=== PATIENT | male | born 1950 | race African-American/Black ===

== ENCOUNTER 2017-05-07 09:24 | Inpatient (IN) | payer MEDICARE, MEDICAID ==
[~2017-05-07] VITALS: Ht 175.3 cm; Wt 100.2 kg
[2017-05-07] MEDS ORDERED: SODIUM CHLORIDE 0.9% 1,000 ML IV ONE (10:00)
[2017-05-07 11:30] LABS: CLARITY URINE CLEAR (CLEAR); COLOR URINE YELLOW (YELLOW); KETONES URINE NEGATIVE (NEGATIVE); LEUKOCYTE ESTERASE URINE NEGATIVE (NEGATIVE); NITRITE URINE NEGATIVE (NEGATIVE); OCCULT BLOOD URINE TRACE (NEGATIVE); PH URINE 5.5 (4.5-8.0); PROTEIN URINE 2+ (NEGATIVE); SPECIFIC GRAVITY URINE 1.016 (1.005-1.030); UROBILINOGEN URINE 0.2 E.U./dL (0.2-1.0)
[2017-05-07 11:49] LABS: CHLORIDE 108 mEq/L (98-107); ETHANOL BLOOD < 10 mg/dL
[2017-05-07 11:58] LABS: CARBAMAZEPINE < 0.5 ug/mL (4-12); PHENOBARBITAL < 2.1 ug/mL (15.0-40.0)
[2017-05-07 12:01] LABS: *AMPHETAMINES SCREEN URINE NEGATIVE (NEGATIVE); *BARBITURATES SCREEN URINE NEGATIVE (NEGATIVE); *BENZODIAZEPINES SCREEN URINE NEGATIVE (NEGATIVE); *COCAINE SCREEN URINE NEGATIVE (NEGATIVE); CANNABINOID URINE SCREEN NEGATIVE (NEGATIVE); METHADONE URINE SCREEN NEGATIVE (NEGATIVE); OPIATES URINE SCREEN PRESUMTIVE POSITIVE (NEGATIVE); PHENCYCLIDINE URINE SCREEN NEGATIVE (NEGATIVE)
[2017-05-07] MEDS ORDERED: VALPROIC ACID 250MG CAPSULE PO ONE (12:30)
[2017-05-07] MEDS ORDERED: CLONIDINE 0.1MG TABLET PO ONE (13:30)
[2017-05-07 13:50] LABS: BASOPHILS % 0.9 % (0.0-2.0); EOSINOPHILS % 0.3 % (0.0-5.0); HEMOGLOBIN. 9.9 g/dL (14.0-18.0); LYMPHOCYTES % 11.5 % (20.0-50.0); MEAN CORPUSCULAR HEMOGLOBIN 28.9 pg (28.0-32.0); MEAN CORPUSCULAR VOLUME 87.4 fL (80.0-94.0); MONOCYTES % 6.1 % (2.0-8.0); NEUTROPHILS % 81.2 % (40.0-76.0); RED BLOOD CELL COUNT 3.43 mill/uL (4.7-6.1); RED CELL DISTRIBUTION WIDTH 15.7 % (11.6-14.6)
[2017-05-07] MEDS ORDERED: DOCUSATE SODIUM 100MG CAPSULE PO PRN (17:30)
[2017-05-07] MEDS ORDERED: IPRATROPIUM/ALBUTEROL 0.5-3(2.5)MG/3ML NEB INH PRN (17:30)
[2017-05-07] MEDS ORDERED: KETOROLAC 15MG/ML VIAL IV PRN (17:30)
[2017-05-07] MEDS ORDERED: GUAIFENESIN 200MG/10ML SUGAR FREE UDC PO PRN (17:30)
[2017-05-07] MEDS ORDERED: ZOLPIDEM TARTRATE 5MG TABLET PO PRN (17:30)
[2017-05-07] MEDS ORDERED: CLONIDINE 0.1MG TABLET PO PRN (17:30)
[2017-05-07] MEDS ORDERED: DIPHENHYDRAMINE 50MG/ML VIAL IV PRN (17:30)
[2017-05-07] MEDS ORDERED: MAGNESIUM/ALUMINUM HYDROXIDE/SIMETHICONE 30ML UDC PO PRN (17:30)
[2017-05-07] MEDS ORDERED: ONDANSETRON HCL 4MG/2ML VIAL IV PRN (17:30)
[2017-05-07] MEDS ORDERED: NITROGLYCERIN 0.4MG TABLET SL SL PRN (17:30)
[2017-05-07] MEDS ORDERED: LORAZEPAM 2MG/ML CPJ IV PRN (17:30)
[2017-05-07] MEDS ORDERED: NA PHOS,M-B/NA PHOS,DI-BA ENEMA 118ML PR PRN (17:30)
[2017-05-07] MEDS ORDERED: FAMOTIDINE 20MG/2ML VIAL IV SCH (21:00)
[2017-05-07 21:03] LABS: TOTAL IRON BINDING CAPACITY 169 ug/dL (250-450)
[2017-05-07 21:23] LABS: FOLIC ACID (FOLATE) SERUM 9.8 ng/mL (>5.38)
[2017-05-07 22:25] VITALS: BP 156/80
[2017-05-07] MEDS: LEVETIRACETAM 500MG TABLET PO SCH (23:27)
[2017-05-07] MEDS: VALPROIC ACID 250MG CAPSULE PO SCH (23:27)
[2017-05-08] VITALS: BP 146/76
[2017-05-08 04:00] VITALS: BP 147/79
[2017-05-08] MEDS: VALPROIC ACID 250MG CAPSULE PO SCH ×2 (07:04→14:38)
[2017-05-08 08:00] VITALS: BP 145/72
[2017-05-08] MEDS: LEVETIRACETAM 500MG TABLET PO SCH (08:32)
[2017-05-08] MEDS ORDERED: FAMOTIDINE 20MG/2ML VIAL IV SCH (09:00)
[2017-05-08] MEDS ORDERED: ENOXAPARIN 40MG/0.4ML SYR SUBCUT SCH (09:00)
[2017-05-08] MEDS ORDERED: AMLODIPINE 10MG TABLET PO SCH (09:00)
[2017-05-08 12:30] VITALS: BP 142/62
[2017-05-08 12:38] VITALS: BP 142/62
== END 2017-05-08 16:00 | disposition home or self-care (01) | DRG 871 ==
LOC: ER 09:37 → EDBD 13:01 → 8WST 13:01 → ENRESERV 21:17
PROVIDERS: ADMIT Internal Medicine; ATTEND Internal Medicine
DX: A41.9 Sepsis, unspecified organism (principal); G93.40 Encephalopathy, unspecified; N17.0 Acute kidney failure with tubular necrosis; G40.89 Other seizures; D63.8 Anemia in other chronic diseases classified elsewhere; I10 Essential (primary) hypertension
CPT/HCPCS: 36415; 70450; 80053; 80061; 80156; 80165; 80184; 80185; 80305; 81003; 82607; 82746; 82962; 83036; 83540; 83550; 85025; 93970; 96360; 96361; 99285; G0482; J1650; J3490; J7030

== ENCOUNTER 2017-05-20 20:57 | Emergency (ER) | payer MEDICARE, MEDICAID ==
[~2017-05-20] VITALS: Ht 182.9 cm; Wt 96.0 kg
[2017-05-20 22:38] LABS: BASOPHILS % 0.7 % (0.0-2.0); EOSINOPHILS % 3.4 % (0.0-5.0); HEMATOCRIT. 27.2 % (42.0-52.0); HEMOGLOBIN. 9.2 g/dL (14.0-18.0); MEAN CORPUSCULAR HEMOGLOBIN 29.5 pg (28.0-32.0); MEAN CORPUSCULAR VOLUME 87.5 fL (80.0-94.0); MEAN PLATELET VOLUME 8.3 fl (7.4-10.4); MONOCYTES % 8.4 % (2.0-8.0); NEUTROPHILS % 61.5 % (40.0-76.0); PLATELET 275 x1000/uL (130-400); RED BLOOD CELL COUNT 3.11 mill/uL (4.7-6.1); RED CELL DISTRIBUTION WIDTH 15.1 % (11.6-14.6)
[2017-05-20] MEDS ORDERED: PHENYTOIN SODIUM 500 MG in SODIUM CHLORIDE 0.9% 50 ML IV ONE (23:00)
[2017-05-20] MEDS ORDERED: PHENYTOIN SODIUM 500 MG in SODIUM CHLORIDE 0.9% 100 ML IV SCH (23:15)
[2017-05-21 04:08] VITALS: BP 159/83
== END 2017-05-21 04:09 | disposition home or self-care (01) ==
LOC: ER 20:57
DX: G40.909 Epilepsy, unspecified, not intractable, without status epilepticus (principal); I10 Essential (primary) hypertension; J44.9 Chronic obstructive pulmonary disease, unspecified; F99 Mental disorder, not otherwise specified; Z86.73 Personal history of transient ischemic attack (TIA), and cerebral infarction without residual deficits
CPT/HCPCS: 36415; 80048; 80185; 85025; 96365; 99284; J1165; J7050